=== PATIENT | male | born 1940 | race Caucasian/White ===

== ENCOUNTER 2025-02-22 08:45 | Outpatient (AMB) | payer OTHER, SELFPAY ==
[2025-02-22 08:48] VITALS: BMI 29.2
--- NOTE | 2025-02-22 08:48 | A.PHYSOV_ITS ---
Vital Signs 02/22/25 08:48 Height 6 ft Weight 215 lb BMI 29.2 Intake Visit Reasons: NPV Self Ref- sciatica (MRI @ [facility]) Intake Note: Patient is a 84 year old male in office as new patient for right leg pain. Has had 2 back surgeries at [facility] [employer] Required: No Allergies rosuvastatin (From Crestor) Allergy (Unknown, Verified 02/22/25 08:48) Unknown HPI Comments Details: History of Present Illness The patient is an 84-year-old male presenting for evaluation of chronic low back and radicular leg pain. He has a history of a double lumbar fusion at L4-L5 and L5-S1 performed in [place], which provided good relief for about five years. A subsequent second double fusion was not successful, and a later attempt to decompress a nerve also failed to provide benefit. The patient's history is also complicated by a right hip replacement, which he states was complicated by significant blood loss and a large hematoma, which adversely affected the healing process. Currently, the patient experiences pain and stiffness for about 30 minutes upon waking, which is worse if he sleeps on his right side and improves with a heating pad and movement. His pain intensifies as the day progresses, starting around noon and sometimes becoming so severe by 3 p.m. that he is unable to walk and must get off his feet. The pain originates in his back, travels to the right hip, down the buttock, and into the knee. 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 He reports significant relief from sitting down. Past treatments include prednisone, which offers temporary relief, and knee injections, which provided pain relief for one to two weeks. Injections in his back and trials of Tramadol have been ineffective. He has also noted his distance vision has worsened over the past month. Pain Description - Location: Pain starts in the low back, propagates to the right hip, radiates down the right buttock, and into the right knee. - Onset and Timing: Experiences morning stiffness and pain for about 30 minutes, worse after sleeping on the right side. - Progression: Pain worsens throughout the day, peaking around 3 p.m. at which point he may be unable to walk. - Quality: Described as brutal nerve pain. - Exacerbating Factors: Lying down, sleeping on the right side, prolonged standing, and lifting objects as light as 40 pounds. - Relieving Factors: Sleeping on the left side, using a heating pad in the morning, movement after waking, and sitting down. - Interference with Function: At its worst, the pain prevents him from walking and forces him to get off his feet. Results - Imaging: An MRI of the back was previously performed and reviewed. MRI was done on 10/14/2024. Posterior fusion at the L4-L5 and L5-S1 level was demonstrat ed. Patient had [id number] right neural foraminal stenosis at the L3-L4 level above his fusion. He also had moderate right neural foraminal narrowing at the level of fusion at the L4-L5. [facility] Medical History (Updated 02/22/25 @ 12:05 by Russell Haq DO) Spinal stenosis, lumbar region with neurogenic claudication Lumbar radiculitis Post laminectomy syndrome Surgical History History of removal of skin mole (Unknown) History of knee replacement (Unknown) History of laminectomy (Unknown) History of hip replacement (Unknown) Social History Household Members: Spouse Alcohol intake: current Alcohol intake frequency: does not drink Patient Tobacco Use Status: Former Tobacco user Use of substances other than those prescribed or required for medical reasons: No Current occupational status: employed Review of Systems Narrative Review of Systems - Musculoskeletal: Reports chronic back pain, right hip pain, and right knee pain. - Reports morning stiffness lasting approximately 30 minutes. - Reports feeling that his left leg may kick out when descending stairs. - Neurological: Reports pain radiating down his right buttock and leg. - Ophthalmologic: Reports worsening distance vision over the past month. Physical Exam Exam Exam: Physical Exam Patient appears to be in no acute distress. Appropriately conversant oriented. Very hard of hearing. Lumbar range of motion was restricted in all planes. Dural tension signs were negative. Neurological examination was nonfocal with uniformly diminished muscle stretch reflexes. No focal motor deficits. Heel walk and toe walk were not tested. Patient demonstrated no upper motor neuron signs. SI provocative maneuvers were negative. 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 - Analgesia: Has tried Tramadol with little effect. - He notes prednisone provides temporary relief for about a week. - Previous knee injections were helpful for 1-2 weeks, while back injections were not effective. - Adverse Effects: The physician advised against long-term use of prednisone due to side effects. - Activities of Daily Living: He remains active and continues to work. - He avoids heavy lifting and modifies activities, such as sliding objects instead of carrying them. - His activity is limited by pain, requiring him to sit for a half-hour after being active for about 20 minutes. - Aberrant Drug-Related Behaviors: None reported. Plan Patient was informed and verbally consented to the use of an ambient scribe for clinic note documentation during this visit. 1. Post-Laminectomy Syndrome And Lumbar Radiculopathy The patient's pain is attributed to nerve compression from post-surgical changes and arthritis, which worsens with gravity when standing and improves with sitting as this position opens up the spinal canal. Conservative management was discussed, including morning stretches, taking breaks to sit down when pain worsens, and using a step stool to elevate the right foot while standing to simulate a sitting posture and relieve nerve pressure. Spinal cord stimulation was mentioned as a more aggressive treatment option, for which a referral can be provided, as this is not a procedure performed by the current provider. Further surgery is not recommended. After discussion, the patient agreed to proceed with a lumbar epidural steroid injection. It was explained that this may only provide short-term relief, potentially 1-2 weeks, though the goal is for three months of benefit. The plan is to perform the injection at the L3-L4 level under X-ray guidance. The group rooms coordinator will contact the patient to arrange the procedure. Discussion Notes I explained to the patient that his symptoms of back and leg pain are consistent with nerve compression in his lumbar spine, a condition often referred to as spinal stenosis, which is exacerbated by his history of multiple back surgeries and age-related arthritis. I advised that when he is standing for prolonged periods, gravity compresses the nerve, causing the leg pain, and that sitting down opens up the space and provides relief. We discussed several management options. I recommended conservative measures such as taking frequent sitting breaks and using a step stool to elevate his foot when standing. I mentioned spinal cord stimulation as a more aggressive treatment option which would require a referral. We discussed a lumbar epidural steroid injection (nerve block) at L3-L4. I informed him that while his previous back injections were not effective, we could try again, but my opinion is that it is unlikely to provide long-term relief, possibly only lasting for a week or two. The patient understood the limited potential for success but wished to proceed with the injection. Risks and benefits of the procedure were discussed with the patient. Potential alternative measures were also discussed. Patient understands that the procedure is completely elective. Potential side effects associated with injectable medications were discussed. All questions were answered to the patient's satisfaction. I informed him that my group rooms coordinator, Mary, will call him to schedule the procedure. Patient Instructions - To help with morning stiffness, try taking a hot shower and doing light stretches when you wake up. - When you feel your leg pain starting after standing for a while, you must sit down for a few minutes to relieve the pressure on the nerve. - If you need to stand for a longer period, try placing your right foot on a low step or stool, as this may ease the pain. - Continue to avoid lifting heavy items. - We will move forward with a cortisone injection in your lower back to see if it provides any relief. - Our group rooms coordinator, Mary, will call you to set up an appointment for the injection. Coding Level of Care Code New Pt Level 4 (36609) Add On Problem Visit Only Diagnoses Post laminectomy syndrome M96.1 Lumbar radiculitis M54.16 Spinal stenosis, lumbar region with neurogenic claudication M48.062
== END 2025-02-22 09:18 | disposition home or self-care (01) ==
LOC: HO.HPHYS 08:45
PROVIDERS: PCP Internal Medicine; Visit Provider Physical Medicine & Rehabilitation
DX: M96.1 Postlaminectomy syndrome, not elsewhere classified (principal); M54.16 Radiculopathy, lumbar region; M48.062 Spinal stenosis, lumbar region with neurogenic claudication
CPT/HCPCS: 99204; G2211